=== PATIENT | male | born 1995 | race African-American/Black ===

== ENCOUNTER 2021-09-20 13:02 | Emergency (ER) | payer SELFPAY | END 2021-09-20 15:30 | disposition left against medical advice (07) | PROVIDERS: Emergency Provider Emergency Medicine | DX: R06.02 Shortness of breath (principal); R68.83 Chills (without fever) ==

== ENCOUNTER 2021-09-20 13:52 | Outpatient (REF) | payer OTHER, SELFPAY | END 2021-09-20 13:53 | disposition home or self-care (01) | LOC: HO.LAB 13:52 | PROVIDERS: Visit Provider Internal Medicine | DX: Z20.822 Contact with and (suspected) exposure to COVID-19 (principal) | CPT/HCPCS: C9803; U0003; U0005 ==